=== PATIENT | female | born 1950 | race Caucasian/White ===

== ENCOUNTER 2019-05-10 18:05 | Emergency (ER) | payer BC, MEDICARE ==
[2019-05-10 18:32] LABS: BASOPHILS % (AUTO) 0.3 %; EOSINOPHILS # (AUTO) 0.1 10^3/uL (0.0-0.7); EOSINOPHILS % (AUTO) 1.1 %; HGB - HEMOGLOBIN 13.7 g/dL (12.0-16.0); LYMPHOCYTES % (AUTO) 30.9 %; MEAN CORPUSCULAR HEMOGLOBIN 29.1 pg (27.0-31.0); MEAN CORPUSCULAR VOLUME 88.3 fL (81.0-99.0); MEAN PLATELET VOLUME 11.7 fL (7.9-10.8); MONOCYTES # (AUTO) 0.8 10^3/uL (0.0-1.0); MONOCYTES % (AUTO) 12.7 %; NEUTROPHILS # (AUTO) 3.4 10^3/uL (1.5-6.6); NEUTROPHILS % (AUTO) 53.1 %; PLT - PLATELET COUNT 187 10^3/uL (130-450); RED CELL DISTRIBUTION WIDTH 12.3 % (12.0-15.0); WHITE BLOOD COUNT 6.5 x10^3/uL (4.8-10.8)
[2019-05-10] MEDS ORDERED: IPRATROPIUM/ALBUTEROL 3 ML NEB INH STA (18:35)
[2019-05-10] MEDS ORDERED: ASPIRIN CHEW 81 MG TABLET PO STA (18:36)
[2019-05-10 18:45] LABS: ALBUMIN 4.8 g/dL (3.2-5.5); ALBUMIN/GLOBULIN RATIO 1.3 (1.0-2.2); BILIRUBIN,TOTAL 0.3 mg/dL (0.2-1.0); CALCIUM 9.2 mg/dL (8.5-10.3); CREATININE 0.8 mg/dL (0.4-1.0); TOTAL PROTEIN 8.4 g/dL (6.7-8.2)
--- NOTE | 2019-05-10 19:06 | ED Physician Documentation ---
History of Present Illness - Stated complaint Stated Complaint: CP/SOA X2 DAYS - Chief complaint Chief Complaint: Cardiac - History obtained from History obtained from: Patient - History of Present Illness Timing: How many days ago (2) Pain level max: 4 Pain level now: 3 - Additonal information Additional information: 69-year-old female presents to the emergency department stating that she has had chest pain for the past 2 days. She states that the chest feels tight. She states that she feels mildly short of breath. Does not have any cardiac history. Normal cardiac stress test 3 years ago. She had an old inhaler at home which she tried but did not provide any relief. She did not take any aspirin today. She does not smoke. Has a history of hypertension. No history of diabetes. Nothing makes it better or worse. Review of Systems Ten Systems: 10 systems reviewed and negative Constitutional: denies: Fever, Chills Throat: denies: Sore throat Cardiac: reports: Chest pain / pressure Respiratory: denies: Cough GI: denies: Nausea, Vomiting, Diarrhea Skin: denies: Rash Musculoskeletal: denies: Neck pain, Back pain Neurologic: denies: Headache PD PAST MEDICAL HISTORY - Past Medical History Past Medical History: Yes Cardiovascular: Hypertension - Past Surgical History Past Surgical History: No - Present Medications Home Medications: Ambulatory Orders Medication Instructions Recorded Confirmed Albuterol Sulf [Ventolin Hfa 1 - 2 puffs INH Q4HR PRN #1 inhaler 05/10/19 Inhaler] - Allergies Allergies/Adverse Reactions: Allergies Allergy/AdvReac Type Severity Reaction Status Date / Time No Known Drug Allergies Allergy Verified 05/10/19 18:23 - Living Situation Living Situation: reports: With family Living Arrangement: reports: At home - Social History Does the pt smoke?: No Smoking Status: Never smoker Does the pt have substance abuse?: No - Family History Family history: reports: Non contributory PD ED PE NORMAL - Vitals Vital signs reviewed: Yes - General General: Alert and oriented X 3, No acute distress, Well developed/nourished - HEENT HEENT: Moist mucous membranes - Neck Neck: Supple, no meningeal sign - Cardiac Cardiac: RRR, Strong equal pulses - Respiratory Respiratory: No respiratory distress, Other (Diminished breath sounds bilaterally) - Abdomen Abdomen: Soft, Non tender, Non distended - Derm Derm: Warm and dry, No rash - Extremities Extremities: No edema, No calf tenderness / cord - Neuro Neuro: Alert and oriented X 3 - Psych Psych: Normal mood, Normal affect Results - Vitals Vitals: Vital Signs - 24 hr 05/10/19 05/10/19 05/10/19 18:10 18:29 18:57 Temperature 36.6 C Heart Rate 67 75 78 Respiratory 16 16 20 Rate Blood Pressure 165/85 H 144/67 H O2 Saturation 98 97 05/10/19 20:15 Temperature 36.6 C Heart Rate 66 Respiratory 16 Rate Blood Pressure 151/73 H O2 Saturation 96 Oxygen O2 Source Room air - EKG (time done) 1819 Rate: Rate (enter#) (71) Rhythm: NSR [place]: Normal Intervals: Normal ID QRS: Normal, LVH Ischemia: Normal ST segments - Labs Labs: Laboratory Tests 05/10/19 05/10/19 05/10/19 18:25 18:25 18:25 WBC 6.5 RBC 4.70 Hgb 13.7 Hct 41.5 MCV 88.3 MCH 29.1 MCHC 33.0 RDW 12.3 Plt Count 187 MPV 11.7 H Neut # (Auto) 3.4 Lymph # (Auto) 2.0 [place] # (Auto) 0.8 Eos # (Auto) 0.1 Baso # (Auto) 0.0 Absolute Nucleated RBC 0.00 Nucleated RBC % 0.0 Sodium 141 Potassium 3.3 L Chloride 103 Carbon Dioxide 25 Anion Gap 13.0 BUN 18 Creatinine 0.8 Estimated GFR (MDRD) 71 L Glucose 104 H Calcium 9.2 Total Bilirubin 0.3 AST 22 ALT 22 Alkaline Phosphatase 45 Troponin I High Sens 5.5 Total Protein 8.4 H Albumin 4.8 Globulin 3.6 Albumin/Globulin Ratio 1.3 Lipase 27 - Rads (name of study) cxr Radiology: Prelim report reviewed, EMP read contemporaneously, See rad report (Negative for any acute cardiopulmonary abnormality. ) PD MEDICAL DECISION MAKING - ED course Complexity details: reviewed results, re-evaluated patient, considered differential (No ST elevation AL, no aortic dissection, no PE, no tension pneumothorax, no aortic aneurysm), d/w patient ED course: 69-year-old female with atypical chest pain. Symptoms completely resolved with nebulizer treatment. Feels much better. Does not appear to be related to acute coronary syndrome, pulmonary embolus, pneumothorax, aortic dissection. Will prescribe an inhaler for home. Patient counseled regarding signs and symptoms for which I believe and urgent re-evaluation would be necessary. Patient with good understanding of and agreement to plan and is comfortable going home at this time This document was made in part using voice recognition software. While efforts are made to proofread this document, sound alike and grammatical errors may occur. Departure - Departure Disposition: Home, Self Care Clinical Impression: Chest tightness Condition: Good Instructions: ED Chest Pain Atypical Unkn Cause Follow-Up: your,doctor in 1 week for recheck and stress test [Other] Prescriptions: Albuterol Sulf [Ventolin Hfa Inhaler] 1 - 2 puffs INH Q4HR PRN #1 inhaler PRN Reason: Shortness Of Air/Wheezing Comments: Use the inhaler as prescribed. You should follow-up with your doctor next week for further evaluation. You should have a cardiac stress test as well with your doctor. You should start on a baby aspirin daily. Discharge Date/Time: 05/10/19 20:16
--- NOTE | 2019-05-10 19:32 | XRAY Report ---
Reason: Chest pain Procedure Date: 05/10/2019 Accession Number: [id number] / [id number] Procedure: XR - Chest 1 View X-Ray CPT Code: 34966 Final Report FULL RESULT: EXAM: CHEST RADIOGRAPHY EXAM DATE: 05/10/2019 06:58 PM. CLINICAL HISTORY: Chest pain. COMPARISON: None. TECHNIQUE: 1 view. FINDINGS: Lungs/Pleura: No focal opacities evident. No pleural effusion. No pneumothorax. Mediastinum: Within exam limitations, the cardiomediastinal contour is normal. Other: There is a chronic deformity of the lateral right clavicle. IMPRESSION: Negative for any acute cardiopulmonary abnormality. RADIA
[2019-05-10 20:16] VITALS: BP 151/73
== END 2019-05-10 20:16 | disposition home or self-care (01) ==
LOC: ED 18:05
DX: R07.89 Other chest pain (principal); I10 Essential (primary) hypertension
CPT/HCPCS: 36415; 71045; 80053; 83690; 84484; 85025; 93005; 94640; 99284; A9270

== ENCOUNTER 2019-07-16 07:00 | Outpatient (CLI) | payer BC, MEDICARE | END 2019-07-16 23:59 | disposition home or self-care (01) | LOC: LAB.R 07:00 | PROVIDERS: ATTEND Physician Assistant | DX: R06.02 Shortness of breath (principal) | CPT/HCPCS: 81599 ==

== ENCOUNTER 2019-07-16 13:02 | Outpatient (CLI) | payer BC, MEDICARE ==
--- NOTE | 2019-07-16 17:49 | XRAY Report ---
Reason: SHORTNESS OF BREATH Procedure Date: 07/16/2019 Accession Number: [id number] / [id number] Procedure: XRS - Chest 2 View X-Ray CPT Code: 23816 Final Report FULL RESULT: PROCEDURE: Chest 2 View X-Ray INDICATIONS: SHORTNESS OF BREATH TECHNIQUE: 2 view(s) of the chest. COMPARISON: Chest x-ray 05/10/2019 FINDINGS: Surgical changes and devices: None. Lungs and pleura: No pleural effusions or pneumothorax. Lungs are clear. Mediastinum: Mediastinal contours are normal. Heart size is normal. Bones and chest wall: No suspicious bony abnormalities. Soft tissues appear unremarkable. IMPRESSION: No acute pulmonary process. Reviewed by: Kathleen Singh MD on 07/16/2019 2:12 PM PDT Approved by: Kathleen Singh MD on 07/16/2019 2:12 PM PDT Station ID: [id number]
== END 2019-07-16 13:03 | disposition home or self-care (01) ==
LOC: DI.S 13:02
PROVIDERS: ATTEND Physician Assistant
DX: R06.02 Shortness of breath (principal)
CPT/HCPCS: 71046